=== PATIENT | male | born 2000 | race African-American/Black ===

== ENCOUNTER 2021-01-21 20:00 | Emergency (ER) | payer SELFPAY ==
[~2021-01-21] VITALS: Ht 172.7 cm; Wt 63.0 kg
[2021-01-21] MEDS ORDERED: ALBUTEROL (0.083%) 2.5MG/3ML NEB HHN STA (20:39)
[2021-01-21] MEDS ORDERED: ALBU6.7H9 INH (20:40)
[2021-01-21 21:45] VITALS: BP 130/54
== END 2021-01-21 21:58 | disposition home or self-care (01) ==
LOC: ER 20:00
DX: J45.901 Unspecified asthma with (acute) exacerbation (principal)
CPT/HCPCS: 93005; 94640; 99283; Z7610